=== PATIENT | female | born 1990 | race Caucasian/White ===

== ENCOUNTER 2018-12-23 18:24 | Emergency (ER) | payer OTHER ==
[2018-12-23 19:00] VITALS: RESP 18
[2018-12-23] MEDS ORDERED: ACETAMINOPHEN TAB 500 MG TAB PO STA (19:18)
--- NOTE | 2018-12-23 19:29 | ED ---
General Adult HPI - General Chief complaint: Abdominal Pain Stated complaint: rt flank pain, nausea x 1 week Time Seen by Provider: 12/23/18 19:02 Source: patient, RN notes reviewed Mode of arrival: wheelchair Limitations: no limitations - History of Present Illness Initial comments: 28-year-old female with a past medical history of depression, anxiety, section presents to the emergency department for a chief complaint of right side pain. Patient states that she has pain in the right lower abdomen side and flank for the past week. States over the past 2 days she has started to have nausea vomiting and worsening pain. States she has also had a fever for the past 2 days. States she was unsure why she had this fever. Denies any pelvic pain or vaginal discharge. Denies any dysuria. Denies any cough or congestion. Patient has no other complaints at this time including shortness of breath, chest pain, abdominal pain, nausea or vomiting, headache, or visual changes. - Related Data Previous Rx's Medication Instructions Recorded Cephalexin [Keflex] 500 mg PO Q6HR 14 Days cap 12/23/18 Ondansetron [Zofran ODT] 4 mg PO Q8HR PRN #15 tab 12/23/18 Potassium Chloride ER [K-Dur 20] 40 meq PO DAILY #1 tab 12/23/18 Allergies Allergy/AdvReac Type Severity Reaction Status Date / Time diclofenac sodium Allergy Unknown Verified 12/23/18 19:25 [From Voltaren] naproxen sodium Allergy Unknown Verified 12/23/18 19:25 [From Treximet] rizatriptan benzoate Allergy Unknown Verified 12/23/18 19:25 [From Maxalt] sumatriptan succinate Allergy Unknown Verified 12/23/18 19:25 [From Treximet] topiramate [From Topamax] Allergy Unknown Verified 12/23/18 19:25 Review of Systems ROS Statement: Those systems with pertinent positive or pertinent negative responses have been documented in the HPI. ROS Other: All systems not noted in ROS Statement are negative. Past Medical History Past Medical History: Asthma History of Any Multi-Drug Resistant Organisms: None Reported Past Surgical History: Section Additional Past Surgical History / Comment(s): Adriane Past Psychological History: Anxiety, Depression Smoking Status: Current every day smoker Past Alcohol Use History: Occasional Past Drug Use History: None Reported General Exam Limitations: no limitations General appearance: alert, in no apparent distress Head exam: Present: atraumatic, normocephalic, normal inspection Eye exam: Present: normal appearance, PERRL, EOMI. Absent: scleral icterus, conjunctival injection, periorbital swelling ENT exam: Present: normal exam, mucous membranes moist Neck exam: Present: normal inspection, full ROM. Absent: tenderness, meningismus, lymphadenopathy Respiratory exam: Present: normal lung sounds bilaterally. Absent: respiratory distress, wheezes, rales, rhonchi, stridor Cardiovascular Exam: Present: regular rate, normal rhythm, normal heart sounds. Absent: systolic murmur, diastolic murmur, rubs, gallop, clicks GI/Abdominal exam: Present: soft, tenderness (Significant Tenderness noted in the right lower quadrant. Mild tenderness noted in the right upper quadrant. Voluntary guarding present. No significant tenderness in the left upper lower quadrants.), guarding (Voluntary right lower quadrant guarding.), normal bowel sounds. Absent: distended, rebound, rigid Back exam: Present: CVA tenderness (R). Absent: CVA tenderness (L), vertebral tenderness Neurological exam: Present: alert, oriented X3 Psychiatric exam: Present: normal affect, normal mood Course Vital Signs 12/23/18 12/23/18 18:57 20:26 Temperature 103.1 F H 102.4 F H Pulse Rate 127 H 104 H Respiratory 18 18 Rate Blood Pressure 108/74 O2 Sat by Pulse 100 98 Oximetry Medical Decision Making - Medical Decision Making 28-year-old female presents to the emergency department for a chief complaint of right side pain as well as nausea and vomiting. Patient has had right-sided pain for about a week and has had nausea and vomiting for several days now. Patient has also felt febrile for a few days. Has not taken Motrin or Tylenol. Patient initially has a temperature of 103.1 with a reflexive tachycardia of 12 7. On exam she does have right CVA tenderness as well as right abdominal pain and tenderness. White count is 12.5 CMP does show mild hyponatremia of 132, patient was given normal saline. Potassium of 3.1 is also apparent, patient given oral potassium. Urine does show greater than [address] shows acute pyelonephritis of the right kidney. Patient was given 2 g of Rocephin and 2 L of fluids. She is hydrating orally as well. I did offer admission to patient however patient states she would rather go home. Therefore strict return parameters were given including but not limiting to inability to tolerate oral liquids, worsening pain, or any other concerning symptoms. Recom mended following up with primary care in 1-2 days as well. Recommended following up on culture results.. - Lab Data Result diagrams: 12/23/18 19:44 12/23/18 19:44 Lab Results 12/23/18 12/23/18 12/23/18 Range/Units 19:44 19:44 19:44 WBC 12.5 H (3.8-10.6) k/uL RBC 4.76 (3.80-5.40) m/uL Hgb 13.6 (11.4-16.0) gm/dL Hct 40.3 (34.0-46.0) % MCV 84.8 (80.0-100.0) fL MCH 28.6 (25.0-35.0) pg MCHC 33.7 (31.0-37.0) g/dL RDW 13.5 (11.5-15.5) % Plt Count 231 (150-450) k/uL Neutrophils % 80 % Lymphocytes % 8 % Monocytes % 9 % Eosinophils % 1 % Basophils % 0 % Neutrophils # 10.0 H (1.3-7.7) k/uL Lymphocytes # 1.0 (1.0-4.8) k/uL Monocytes # 1.1 H (0-1.0) k/uL Eosinophils # 0.1 (0-0.7) k/uL Basophils # 0.0 (0-0.2) k/uL Sodium 132 L (137-145) mmol/L Potassium 3.1 L (3.5-5.1) mmol/L Chloride 94 L (98-107) mmol/L Carbon Dioxide 27 (22-30) mmol/L Anion Gap 11 mmol/L BUN 11 (7-17) mg/dL Creatinine 0.78 (0.52-1.04) mg/dL Est GFR (CKD-EPI)AfAm >90 (>60 ml/min/1.73 sqM) Est GFR (CKD-EPI)NonAf >90 (>60 ml/min/1.73 sqM) Glucose 115 H (74-99) mg/dL Plasma Lactic Acid Ranjan 1.5 (0.7-2.0) mmol/L Calcium 8.8 (8.4-10.2) mg/dL Total Bilirubin 0.6 (0.2-1.3) mg/dL AST 24 (14-36) U/L ALT 19 (9-52) U/L Alkaline Phosphatase 95 (38-126) U/L Total Protein 7.0 (6.3-8.2) g/dL Albumin 3.7 (3.5-5.0) g/dL Urine Color Urine Appearance (Clear) Urine pH (5.0-8.0) Ur Specific [place] (1.001-1.035) Urine Protein (Negative) Urine Glucose (UA) (Negative) Urine Ketones (Negative) Urine Blood (Negative) Urine Nitrite (Negative) Urine Bilirubin (Negative) Urine Urobilinogen (<2.0) mg/dL Ur Leukocyte Esterase (Negative) Urine RBC (0-5) /hpf Urine WBC (0-5) /hpf Ur Squamous Epith Cells (0-4) /hpf Urine Bacteria (None) /hpf Urine Mucus (None) /hpf Urine HCG, Qual (Not Detectd) 12/23/18 12/23/18 Range/Units 19:44 19:44 WBC (3.8-10.6) k/uL RBC (3.80-5.40) m/uL Hgb (11.4-16.0) gm/dL Hct (34.0-46.0) % MCV (80.0-100.0) fL MCH (25.0-35.0) pg MCHC (31.0-37.0) g/dL RDW (11.5-15.5) % Plt Count (150-450) k/uL Neutrophils % % Lymphocytes % % Monocytes % % Eosinophils % % Basophils % % Neutrophils # (1.3-7.7) k/uL Lymphocytes # (1.0-4.8) k/uL Monocytes # (0-1.0) k/uL Eosinophils # (0-0.7) k/uL Basophils # (0-0.2) k/uL Sodium (137-145) mmol/L Potassium (3.5-5.1) mmol/L Chloride (98-107) mmol/L Carbon Dioxide (22-30) mmol/L Anion Gap mmol/L BUN (7-17) mg/dL Creatinine (0.52-1.04) mg/dL Est GFR (CKD-EPI)AfAm (>60 ml/min/1.73 sqM) Est GFR (CKD-EPI)NonAf (>60 ml/min/1.73 sqM) Glucose (74-99) mg/dL Plasma Lactic Acid Ranjan (0.7-2.0) mmol/L Calcium (8.4-10.2) mg/dL Total Bilirubin (0.2-1.3) mg/dL AST (14-36) U/L ALT (9-52) U/L Alkaline Phosphatase (38-126) U/L Total Protein (6.3-8.2) g/dL Albumin (3.5-5.0) g/dL Urine Color Dark Yellow Urine Appearance Cloudy H (Clear) Urine pH 6.0 (5.0-8.0) Ur Specific [place] 1.020 (1.001-1.035) Urine Protein 2+ H (Negative) Urine Glucose (UA) Negative (Negative) Urine Ketones Negative (Negative) Urine Blood Small H (Negative) Urine Nitrite Negative (Negative) Urine Bilirubin Negative (Negative) Urine Urobilinogen 6.0 (<2.0) mg/dL Ur Leukocyte Esterase Large H (Negative) Urine RBC 3 (0-5) /hpf Urine WBC >182 H (0-5) /hpf Ur Squamous Epith Cells 2 (0-4) /hpf Urine Bacteria Many H (None) /hpf Urine Mucus Few H (None) /hpf Urine HCG, Qual Not Detected (Not Detectd) Disposition Clinical Impression: Pyelonephritis Disposition: HOME SELF-CARE Condition: Good Instructions (If sedation given, give patient instructions): Kidney Infection (ED) Additional Instructions: Please take antibiotics as directed. Take Zofran for nausea. If you're having any worsening symptoms such as worsening fever, worsening pain, inability to to lerate oral liquids them return immediately to the emergency department. Follow-up with primary care in 1-2 days as well. Prescriptions: Cephalexin [Keflex] 500 mg PO Q6HR 14 Days cap Ondansetron [Zofran ODT] 4 mg PO Q8HR PRN #15 tab PRN Reason: Nausea Is patient prescribed a controlled substance at d/c from ED?: No Referrals: Carolee Rios MD [REFERRING] - 1-2 days Time of Disposition: 22:04
[2018-12-23] MEDS: SODIUM CHLORIDE 0.9% 500 ML 500 ML IV SCH ×2 (19:42→19:43)
[2018-12-23 20:03] LABS: Basophils % (A) 0 %; Eosinophils # (A) 0.1 k/uL (0-0.7); Eosinophils % (A) 1 %; HCT 40.3 % (34.0-46.0); HGB 13.6 gm/dL (11.4-16.0); Lymphocytes % (A) 8 %; MCH 28.6 pg (25.0-35.0); MCHC 33.7 g/dL (31.0-37.0); MCV 84.8 fL (80.0-100.0); Mean Platelet Volume 7.5; Monocytes # (A) 1.1 k/uL (0-1.0); Monocytes % (A) 9 %; Neutrophils % (A) 80 %; Platelet Count 231 k/uL (150-450); RBC 4.76 m/uL (3.80-5.40); RDW 13.5 % (11.5-15.5); WBC 12.5 k/uL (3.8-10.6)
[2018-12-23 20:22] LABS: ALT 19 U/L (9-52); AST 24 U/L (14-36); African American GFR (CKD) >90 (>60 ml/min/1.73 sqM); Albumin 3.7 g/dL (3.5-5.0); Alkaline Phosphatase 95 U/L (38-126); Anion Gap 11 mmol/L; Blood Urea Nitrogen 11 mg/dL (7-17); Calcium 8.8 mg/dL (8.4-10.2); Carbon Dioxide 27 mmol/L (22-30); Chloride 94 mmol/L (98-107); Glucose 115 mg/dL (74-99); Potassium 3.1 mmol/L (3.5-5.1); Sodium 132 mmol/L (137-145); Total Bilirubin 0.6 mg/dL (0.2-1.3)
[2018-12-23] MEDS ORDERED: MORPHINE SULFATE 4 MG/ML SYRINGE IVP STA (20:44)
[2018-12-23] MEDS ORDERED: ONDANSETRON 4 MG/2 ML VIAL IVP STA (20:45)
[2018-12-23 20:51] LABS: Appearance,Urine Cloudy (Clear); Bacteria,Urine Many /hpf; Bilirubin,Urine Negative (Negative); Blood,Urine Small (Negative); Color,Urine Dark Yellow; Glucose,Urine (UA) Negative (Negative); Ketones,Urine Negative (Negative); Leukocyte Esterase,Urine Large (Negative); Mucus,Urine Few /hpf; Nitrite,Urine Negative (Negative); Protein,Urine 2+ (Negative); RBC,Urine 3 /hpf (0-5); Squamous Epithelial Cell,Urine 2 /hpf (0-4); WBC,Urine >182 /hpf (0-5)
[2018-12-23] MEDS ORDERED: SODIUM CHLORIDE 0.9% 1,000 ML IV STA (20:53)
[2018-12-23] MEDS ORDERED: cefTRIAXone IN SWFI 1,000 MG/10 ML SYRINGE IVP STA (20:53)
--- NOTE | 2018-12-23 21:21 | CT ---
EXAMINATION TYPE: CT abdomen pelvis w con DATE OF EXAM: 12/23/2018 COMPARISON: None HISTORY: Right side abdominal pain CT DLP: 496.9 mGycm Automated exposure control for dose reduction was used. TECHNIQUE: Helical acquisition of images was performed from the lung bases through the pelvis. CONTRAST: Performed without Oral Contrast and with IV Contrast, patient injected with 100 mL of Isovu e 300. FINDINGS: LUNG BASES: No acute findings. LIVER/GB: No significant abnormality is appreciated. PANCREAS: No significant abnormality is seen. SPLEEN: No significant abnormality is seen. ADRENALS: No significant abnormality is seen. KIDNEYS: The ipsilateral right kidney is mildly enlarged and mild moderately indistinct compared with the contralateral left kidney. There are innumerable wedge-shaped hypodense perfusion defects seen a s striations, the so-called "striated nephrogram" of acute pyelonephritis. There are associated infla mmatory changes within the perirenal space. FREE AIR: No free air is visualized. RETROPERITONEAL ADENOPATHY: None visualized REPRODUCTIVE ORGANS: The uterus is retroverted. There is a small volume of cul-de-sac fluid, greater in the right, likely physiologic. URINARY BLADDER: No significant abnormality is seen. PELVIC ADENOPATHY: None visualized. OSSEOUS STRUCTURES: No significant abnormality is seen. BOWEL: No significant abnormality is seen. OTHER: No acute vascular findings. IMPRESSION: ACUTE PYELONEPHRITIS RIGHT KIDNEY.
[2018-12-23] MEDS ORDERED: POTASSIUM CHLORIDE ER 20 MEQ TAB.ER PO STA (22:01)
[2018-12-23 22:05] VITALS: TEMP 100.3
[2018-12-23] MEDS ORDERED: CEPHALEXIN 500MG STARTER PACK 4 CAP BTL PO STA (22:07)
[2018-12-23 22:13] VITALS: BP 98/65; PULSE 95
== END 2018-12-23 22:25 | disposition home or self-care (01) ==
LOC: EC 18:24
DX: N12 Tubulo-interstitial nephritis, not specified as acute or chronic (principal); E87.1 Hypo-osmolality and hyponatremia; R00.0 Tachycardia, unspecified; F17.200 Nicotine dependence, unspecified, uncomplicated; Z88.8 Allergy status to other drugs, medicaments and biological substances; Z88.6 Allergy status to analgesic agent
CPT/HCPCS: 36415; 80053; 83605; 85025; 81001; 81025; 87040; 87086; 74177; 99284; 96365; 96375 ×2; 96361; J2270; J2405; J0696; Q9967; 87077; 87186

== ENCOUNTER → 2019-12-30 | Outpatient (CLI) | payer OTHER ==
[2019-12-30 12:35] LABS: Basophils % (A) 0 %; Eosinophils # (A) 0.1 k/uL (0-0.7); Eosinophils % (A) 1 %; HCT 32.8 % (34.0-46.0); HGB 10.1 gm/dL (11.4-16.0); Hypochromasia Marked; Lymphocytes # (A) 1.8 k/uL (1.0-4.8); Lymphocytes % (A) 18 %; MCH 24.4 pg (25.0-35.0); MCHC 30.9 g/dL (31.0-37.0); MCV 78.9 fL (80.0-100.0); Mean Platelet Volume 8.8; Monocytes # (A) 0.5 k/uL (0-1.0); Monocytes % (A) 5 %; Neutrophils # (A) 7.7 k/uL (1.3-7.7); Neutrophils % (A) 75 %; Platelet Count 247 k/uL (150-450); Poikilocytosis Slight; RBC 4.16 m/uL (3.80-5.40); WBC 10.2 k/uL (3.8-10.6)
[2019-12-30 19:59] LABS: Hepatitis B Surface Antigen Non-Reactive (Non-Reactive)
[2019-12-30 21:26] LABS: HIV 2 AB Non-Reactive (Non-Reactive); HIV AB P24 Non-Reactive (Non-Reactive); HIV P24 AG Non-Reactive (Non-Reactive)
== END | disposition home or self-care (01) ==
LOC: LABWHC1 10:52
PROVIDERS: ATTEND Obstetrics & Gynecology
DX: Z34.83 Encounter for supervision of other normal pregnancy, third trimester (principal); Z3A.00 Weeks of gestation of pregnancy not specified
CPT/HCPCS: 36415; 85025; 86762; 86780; 86850; 86900; 86901; 87086; 87340; 87390

== ENCOUNTER 2020-01-01 06:16 | Inpatient (IN) | payer OTHER ==
[2019-12-31 15:22] VITALS: BMI 25.9
[2020-01-01] MEDS ORDERED: CITRIC ACID-SODIUM CITRATE 15 ML CUP PO ONE (06:32)
[2020-01-01] MEDS: LACTATED RINGERS 1,000 ML IV SCH ×5 (06:39→22:37)
[2020-01-01 06:47] LABS: Amphetamine Screen,Urine Not Detected (NotDetected); Barbiturate Screen,Urine Not Detected (NotDetected); Benzodiazepines Screen,Urine Not Detected (NotDetected); Cocaine Screen,Urine Not Detected (NotDetected); Methadone Screen, Urine Not Detected (NotDetected); Opiate Screen,Urine Not Detected (NotDetected); Oxycodone Screen, Urine Not Detected (NotDetected); Phencyclidine Screen,Urine Not Detected (NotDetected); Tricyclic Antidepressant,Urine Not Detected (NotDetected); Urn Cannabinoid Scrn Not Detected (NotDetected)
[2020-01-01 06:47] LABS: Basophils % (A) 0 %; Eosinophils # (A) 0.1 k/uL (0-0.7); Eosinophils % (A) 1 %; HCT 33.3 % (34.0-46.0); HGB 10.2 gm/dL (11.4-16.0); Hypochromasia Marked; Lymphocytes # (A) 2.1 k/uL (1.0-4.8); Lymphocytes % (A) 17 %; MCH 23.9 pg (25.0-35.0); MCHC 30.8 g/dL (31.0-37.0); MCV 77.6 fL (80.0-100.0); Mean Platelet Volume 8.6; Microcytosis Slight; Monocytes # (A) 0.7 k/uL (0-1.0); Monocytes % (A) 6 %; Neutrophils # (A) 9.2 k/uL (1.3-7.7); Neutrophils % (A) 73 %; Platelet Count 278 k/uL (150-450); Poikilocytosis Slight; RBC 4.29 m/uL (3.80-5.40); RDW 15.5 % (11.5-15.5); WBC 12.6 k/uL (3.8-10.6)
[2020-01-01] MEDS ORDERED: MORPHINE SULFATE (PF) 0.3 MG/0.3 ML SYR ONE (08:10)
[2020-01-01] MEDS ORDERED: ONDANSETRON 4 MG/2 ML VIAL ONE (08:10)
[2020-01-01] MEDS ORDERED: PHENYLEPHRINE-0.9% NACL SYG 1 MG/10 ML SYRINGE ONE (08:10)
[2020-01-01] MEDS ORDERED: OXYTOCIN 10 UNIT/ML 1 ML VIAL ONE (08:10)
[2020-01-01] MEDS ORDERED: DEXAMETHASONE SOD PHOSPHATE 10 MG/ML 1 ML VIAL ONE (08:10)
[2020-01-01] MEDS ORDERED: fentaNYL (PF) 50 MCG/ML 2 ML AMP ONE (08:10)
[2020-01-01] MEDS ORDERED: NALBUPHINE 10 MG/ML (1 ML AMP) ONE (08:10)
[2020-01-01] MEDS ORDERED: diphenhydrAMINE 50 MG/ML 1 ML VIAL ONE (08:10)
[2020-01-01] MEDS ORDERED: MIDAZOLAM 2 MG/2 ML VIAL ONE (08:10)
[2020-01-01] MEDS ORDERED: diphenhydrAMINE 50 MG CAP PO PRN (09:10)
[2020-01-01] MEDS ORDERED: LANOLIN CREAM 5 GM TUBE TOPICAL PRN (09:10)
[2020-01-01] MEDS ORDERED: ACETAMINOPHEN TAB 325 MG TAB PO PRN (09:10)
[2020-01-01] MEDS ORDERED: METOCLOPRAMIDE 5 MG/ML 2 ML VIAL IVP PRN (09:10)
[2020-01-01] MEDS ORDERED: NALOXONE 0.4 MG/ML 1 ML VIAL IV PRN (09:10)
[2020-01-01] MEDS ORDERED: HYDROcodone/APAP 5-325MG 1 EACH TAB PO PRN (09:10)
[2020-01-01] MEDS ORDERED: diphenhydrAMINE 50 MG/ML 1 ML VIAL IVP PRN ×2 (09:10)
[2020-01-01] MEDS ORDERED: ZOLPIDEM 5 MG TAB PO PRN (09:10)
[2020-01-01] MEDS ORDERED: SIMETHICONE 80 MG CHEWABLE PO PRN (09:10)
[2020-01-01] MEDS ORDERED: ONDANSETRON 4 MG/2 ML VIAL IVP PRN (09:10)
[2020-01-01] MEDS ORDERED: diphenhydrAMINE 25 MG CAP PO PRN (09:10)
[2020-01-01] MEDS ORDERED: OXYTOCIN 20 UNITS/1000 ML NS 1,000 ML IV SCH (09:15)
--- NOTE | 2020-01-01 09:20 | P.HPOB ---
History of Present Illness H&P Date: 01/01/20 Chief Complaint: 41-0/7 weeks, previous section, requesting repeat The patient is a 29-year-old 11 para 2172 admitted at 41-0/7 weeks as established reportedly by an early ultrasound done at [facility] at approximate 6-8 weeks of . Since that time, she has had no care and presented to our office for intake at 38+ weeks but then did not return for a visit until 2 days ago at 40-5/7 weeks by current dating paramet ers. She carries a history of a previous section with subsequent successful vaginal trial of labor. She denies any problems for this aside from lack of care. After long discussion of options, the patient reported that she wished to undergo tubal ligation and, as result, I opted to proceed with repeat low transverse section and intraoperative bilateral tubal occlusion with Filshie clips. Risks and complications were discussed at length. labs are not on the current record as there were drawn 2 days ago but are available in the medical record. Group B strep status was not done given late presentation. Obstetrical history: 11 para 2172 was 7 early miscarriages with D&C on occasion. She additionally had a 26 weeks demise which was delivered vaginally and did require D&C for extraction of placenta. Current statistics are listed in history of present illness. EDC of 12/25/2019 was apparently obtained with last menstrual period dating confirmed by an early ultrasound of which we do not have possession done at [facility] at approximately 6-8 weeks. Laboratory workup is available in the chart but not on the record at this time. She is Rh+ and rubella status is immune. Group B strep status was not obtained given late presentation. Gynecologic history: Historically unremarkable with no history of any infections to include STDs. Review of Systems Review of systems is confined to history of present illness. Past Medical History Past Medical History: Asthma, Blood Disorder Additional Past Medical History / Comment(s): protein C deficiency, admission last year for kidney problem-not sure what it was, no current problems, spina bifida-no mobility problems History of Any Multi-Drug Resistant Organisms: None Reported Past Surgical History: Section Additional Past Surgical History / Comment(s): Adriane Past Anesthesia/Blood Transfusion Reactions: Previous Problems w/ Anesthesia Additional Past Anesthesia/Blood Transfusion Reaction / Comment(s): had some tongue swelling after teeth were pulled-not sure what happened, no rxn with her c/s Past Psychological History: Anxiety, Depression Additional Psychological History / Comment(s): not currently medicated Smoking Status: Current every day smoker Past Alcohol Use History: None Reported Additional Past Alcohol Use History / Comment(s): 1/2ppd for 12 years Past Drug Use History: None Reported - Past Family History Mother Family Medical History: Cancer, Diabetes Mellitus Medications and Allergies Home Medications Medication Instructions Recorded Confirmed Type Albuterol Inhaler [Ventolin Hfa 2 puff INHALATION RT-QID PRN 12/31/19 01/01/20 History Inhaler] Allergies Allergy/AdvReac Type Severity Reaction Status Date / Time diclofenac sodium Allergy Unknown Verified 01/01/20 06:32 [From Voltaren] naproxen sodium Allergy Unknown Verified 01/01/20 06:32 [From Treximet] rizatriptan benzoate Allergy Unknown Verified 01/01/20 06:32 [From Maxalt] sumatriptan succinate Allergy Unknown Verified 01/01/20 06:32 [From Treximet] topiramate [From Topamax] Allergy Unknown Verified 01/01/20 06:32 Exam Vital Signs Temp Pulse Resp BP 01/01/20 06:49 96.7 F L 93 18 139/91 Intake and Output 12/31/19 01/01/20 01/01/20 22:59 06:59 14:59 Other: Weight 70.76 kg 70.76 kg In general, this is a well-developed, well-nourished white female in a little bit of discomfort as she is ryan. Her heart has a regular rhythm and rate without murmur. Her lungs are clear to auscultation bilaterally in all paredes. Her abdomen is gravid, nondistended, has normal active bowel sounds, soft, nontender, without any palpable masses aside from uterine fundus. Her extremities are without any cyanosis, clubbing, or edema and are nontender to palpation bilaterally. Digital cervical examination is deferred. Results Result Diagrams: 01/01/20 06:38 Abnormal Lab Results - Last 24 Hours (Table) 01/01/20 Range/Units 06:38 WBC 12.6 H (3.8-10.6) k/uL Hgb 10.2 L (11.4-16.0) gm/dL Hct 33.3 L (34.0-46.0) % MCV 77.6 L (80.0-100.0) fL MCH 23.9 L (25.0-35.0) pg MCHC 30.8 L (31.0-37.0) g/dL Neutrophils # 9.2 H (1.3-7.7) k/uL Assessment and Plan (1) Family planning Current Visit: No Status: Acute Code(s): Z30.09 - ENCOUNTER FOR OT GENERAL CNSL AND ADVICE ON CONTRACEPTION SNOMED Code(s): 905400157 (2) Previous section Current Visit: No Status: Acute Code(s): Z98.891 - HISTORY OF UTERINE SCAR FROM PREVIOUS SURGERY SNOMED Code(s): 934375705 (3) Post-dates Current Visit: No Status: Acute Code(s): O48.0 - POST-TERM SNOMED Code(s): 77434256 Plan: The patient is admitted for repeat low transverse section with i ntraoperative bilateral tubal occlusion using Filshie clips. The risks and complications of all the procedures of been thoroughly discussed and the patient has understood and agreed to proceed.
--- NOTE | 2020-01-01 09:26 | P.OP ---
Date of Procedure: 01/01/20 Preoperative Diagnosis: #1. 41-0/7 weeks intrauterine #2. No care #3. Previous section, declining trial of labor #4. Undesired fertility Postoperative Diagnosis: Same plus #5. Apparent oligohydramnios versus spontaneous rupture of membranes Procedure(s) Performed: #1. Repeat low transverse section #2. Intraoperative bilateral tubal occlusion with Filshie clips Anesthesia: spinal Surgeon: Mynor Angulo Biomedical Analytical Scientist #1: Veronica Bullock Estimated Blood Loss (ml): 500 IV fluids (ml): 1,000 Urine output (ml): 250 Pathology: other (Placenta) Condition: stable Disposition: floor Operative Findings: The patient was taken to the operating room where she was delivered of a viable 6 lbs. 8 oz. baby boy with Apgars of 9 at 1 minute and 9 at 5 minutes. The placenta was delivered manually, intact, and grossly normal with a grossly normal three-vessel cord. The uterus, tubes, and ovaries were entirely normal to inspection. There was a moderate amount of scarring at the level of the fascia and rectus muscles. Description of Procedure: The patient was prepped and draped in usual fashion after spinal anesthesia was administered by the anesthesiologist. A Pfannenstiel incision was made through pre-existing scar and extended into the abdominal cavity with minimal difficulty though there was some moderate scarring at the level of the fascia and rectus muscles. The bladder peritoneum was noted to be significantly distal to the intended site of incision was left intact. A 2 cm incision was made in the transverse plane of the lower uterine segment to enter the uterus at which time minimal clear fluid was noted. The incision was expanded in both directions using the bandage scissors. The head was delivered up and through the incision where the nose and mouth were thoroughly suctioned. Remainder of the infant was delivered onto the field where the cord was doubly clamped, cut, and the infant passed resuscitative measures with weight and Apgars as noted above. A segment of cord was doubly clamped, cut, and set aside should cord gases become necessary. The placenta was delivered manually and intact as noted above. The uterus was exteriorized and the interior cavity swept of any remaining placental or membranous fragments. The margins of the incision were grasped with Adams clamps and the incision closed in 2 layers. The first layer was a running locking stitch of 0 chromic catgut followed by a running imbricating stitch of 0 chromic catgut. Small point of bleeding in the central left portion of the incision was made hemostatic with 2 [id number] stitches of 0 chromic catgut. The posterior cul-de-sac was suctioned with a guard and the uterine and ovarian findings were normal as noted above. The uterus was replaced within the abdominal cavity and the gutters swept of any remaining blood, fluid, or clot. The incision was reexamined and found to be hemostatic. The parietal peritoneum was loosely reapproximated and layer of muscles examined and made hemostatic with the Bovie. The fascia was closed with 2 running stitches of 0 Vicryl proceeding from the lateral margins to the midpoint. Subcutaneous tissues were irrigated, made hemostatic with the Bovie, and reapproximated with a running stitch of 3-0 chromic catgut. The skin was reapproximated with a running subcuticular stitch of 4-0 Vicryl followed by half-inch Steri-Strips placed with Mastisol. Estimated blood loss for the entire case was approximate 500 mL. There are no complications. All sponge, instrument, and needle counts were correct. Both mother and are resting comfortably in recovery of the infant did proceed to the special care nursery for short-term observation secondary to tachypnea.
[2020-01-01] MEDS: KETOROLAC 15 MG/ML 1 ML VIAL IVP PRN ×2 (10:20→18:39)
[2020-01-01] MEDS: SENNOSIDES-DOCUSATE SODIUM 1 EACH TAB PO SCH (22:01)
[2020-01-02] MEDS: KETOROLAC 15 MG/ML 1 ML VIAL IVP PRN ×2 (00:24→05:59)
[2020-01-02] MEDS: HYDROcodone/APAP 7.5-325MG 1 EACH TAB PO PRN ×4 (03:27→21:20)
[2020-01-02 06:42] LABS: Basophils % (A) 0 %; Eosinophils # (A) 0.1 k/uL (0-0.7); Eosinophils % (A) 0 %; HCT 27.6 % (34.0-46.0); Hypochromasia Marked; Lymphocytes # (A) 2.4 k/uL (1.0-4.8); Lymphocytes % (A) 18 %; MCH 24.1 pg (25.0-35.0); MCHC 30.3 g/dL (31.0-37.0); MCV 79.7 fL (80.0-100.0); Mean Platelet Volume 8.6; Monocytes # (A) 0.8 k/uL (0-1.0); Monocytes % (A) 6 %; Neutrophils # (A) 9.9 k/uL (1.3-7.7); Neutrophils % (A) 75 %; Platelet Count 237 k/uL (150-450); Poikilocytosis Slight; RBC 3.47 m/uL (3.80-5.40); RDW 15.8 % (11.5-15.5); WBC 13.3 k/uL (3.8-10.6)
[2020-01-02 06:46] LABS: HGB 8.4 gm/dL (11.4-16.0)
--- NOTE | 2020-01-02 09:47 | P.PNOBGPC ---
Subjective - Subjective Principal diagnosis: Postop day 1, repeat section with tubal ligation Interval history: Patient is doing well postoperatively. She is ambulatory and voiding without difficulty. She states her pain is moderately controlled with oral [place]. She is tolerating a regular diet without nausea or vomiting. Patient reports: Reports appetite normal, Reports voiding normally, Reports pain well controlled, Reports ambulating normally [place]: doing well, nursing well Objective - Vital Signs Latest vital signs: Vital Signs Temp Pulse Resp BP Pulse Ox 01/02/20 08:00 98.1 F 68 16 95/56 98 01/02/20 00:00 98.7 F 86 16 117/79 97 01/01/20 20:00 98.1 F 86 16 123/34 99 01/01/20 16:00 98.3 F 84 16 136/85 98 01/01/20 12:00 97.1 F L 78 16 137/77 97 01/01/20 11:06 75 16 119/60 97 01/01/20 10:36 72 16 145/81 97 01/01/20 10:06 69 16 116/72 98 01/01/20 09:51 60 16 118/71 100 Intake and Output 01/01/20 01/02/20 01/02/20 22:59 06:59 14:59 Intake Total 200 Output Total 1100 900 Balance -900 -900 Intake: Oral 200 Output: Urine 1100 900 Uretheral (Dinero) 900 Other: Voiding Method Indwelling Catheter - Exam Extremities: Present: normal Abdomen: Present: normal appearance, aortic enlargement Incision: Present: normal, dry, intact Uterus: Present: normal, firm - Labs Labs: Abnormal Lab Results - Last 24 Hours (Table) 01/02/20 Range/Units 05:21 WBC 13.3 H (3.8-10.6) k/uL RBC 3.47 L (3.80-5.40) m/uL Hgb 8.4 L D (11.4-16.0) gm/dL Hct 27.6 L (34.0-46.0) % MCV 79.7 L (80.0-100.0) fL MCH 24.1 L (25.0-35.0) pg MCHC 30.3 L (31.0-37.0) g/dL RDW 15.8 H (11.5-15.5) % Neutrophils # 9.9 H (1.3-7.7) k/uL Assessment and Plan (1) No care in current Current Visit: No Status: Acute Code(s): O09.30 - SUPRVSN OF PREG W INSUFFICIENT ANTENAT CARE, UNSP TRIMESTER SNOMED Code(s): 978977105 (2) Post-dates Current Visit: No Status: Acute Code(s): O48.0 - POST-TERM SNOMED Code(s): 38424871 (3) Previous section Current Visit: No Status: Acute Code(s): Z98.891 - HISTORY OF UTERINE SCAR FROM PREVIOUS SURGERY SNOMED Code(s): 646615313 (4) S/P section Current Visit: No Status: Acute Code(s): Z98.891 - HISTORY OF UTERINE SCAR FROM PREVIOUS SURGERY SNOMED Code(s): 777907305 Plan: We'll continue routine postoperative care, increase ambulation. Patient is doing well overall and I anticipate discharge home tomorrow.
[2020-01-02] MEDS: IBUPROFEN 600 MG TAB PO PRN ×2 (13:18→18:22)
[2020-01-02] MEDS: LACTATED RINGERS 1,000 ML IV SCH (13:36)
[2020-01-02] MEDS: SENNOSIDES-DOCUSATE SODIUM 1 EACH TAB PO SCH ×2 (20:23→20:47)
[2020-01-03] MEDS: IBUPROFEN 600 MG TAB PO PRN ×2 (00:03→06:19)
[2020-01-03] MEDS: HYDROcodone/APAP 7.5-325MG 1 EACH TAB PO PRN ×2 (04:03→10:07)
[2020-01-03] MEDS: SENNOSIDES-DOCUSATE SODIUM 1 EACH TAB PO SCH (07:45)
[2020-01-03 08:41] VITALS: BP 118/76; PULSE 81; RESP 18; TEMP 98.6
--- NOTE | 2020-01-03 10:10 | P.DS ---
Providers Date of admission: 01/01/20 06:16 Expected date of discharge: 01/03/20 Attending physician: Mynor Angulo Primary care physician: Stated None - Discharge Diagnosis(es) (1) No care in current Current Visit: No Status: Acute (2) Post-dates Current Visit: No Status: Acute (3) Previous section Current Visit: No Status: Acute (4) S/P section Current Visit: No Status: Acute Hospital Course: This is a 29-year-old 11 para 2172 that presented to labor and delivery at 41-0/7 weeks for scheduled repeat section with tubal ligation. Patient presented to [facility] for OB intake at approximately 38 weeks of subsequently not returning until she was 40-5/7 to discuss delivery options. Patient had an early ultrasound [facility] dating the with current estimated date of confinement of 12/24. Upon admission patient noted good movement and denied contractions. Patient was subsequently taken to the operating suite for scheduled repeat section and tubal ligation. For further details on the please see the operative report. Patient's postoperative course has been uneventful. On this postoperative day #2 she is ambulating and voiding without difficulty. She is tolerating a regular diet without nausea or vomiting. She states her lochia is minimal. She is breast-feeding without difficulty. Her pain is well-controlled with oral [place] and oral Motrin. Patient Condition at Discharge: Good Plan - Discharge Summary Discharge Rx Participant: No New Discharge Prescriptions: No Action Albuterol Inhaler [Ventolin Hfa Inhaler] 2 puff INHALATION RT-QID PRN PRN Reason: Dyspnea Discharge Medication List Albuterol Inhaler [Ventolin Hfa Inhaler] 2 puff INHALATION RT-QID PRN 12/31/19 [History] Patient Instructions/Handouts: (DC), (GEN) Discharge Disposition: HOME SELF-CARE
--- NOTE | 2020-01-03 14:56 | P.PN ---
Progress Note - Text 01/02/20 [id number] 49-year-old female status post with spinal Duramorph. Patient seen and evaluated for postop pain control with a VAS of 2 no complains of nausea vomiting doing well
== END 2020-01-03 10:45 | disposition home or self-care (01) | DRG 784 ==
LOC: 4FBP 06:16
PROVIDERS: ADMIT Obstetrics & Gynecology; ATTEND Obstetrics & Gynecology
PROC: 0UL70CZ Occlusion of Bilateral Fallopian Tubes with Extraluminal Device, Open Approach (ICD-10-PCS; 2020-01-01)
PROC: 10D00Z1 Extraction of Products of Conception, Low, Open Approach (ICD-10-PCS; principal; 2020-01-01 08:00)
DX: O34.211 Maternal care for low transverse scar from previous cesarean delivery (principal); O99.354 Diseases of the nervous system complicating childbirth; D68.59 Other primary thrombophilia; O99.12 Other diseases of the blood and blood-forming organs and certain disorders involving the immune mechanism complicating childbirth; Q05.9 Spina bifida, unspecified; O48.0 Post-term pregnancy; J45.909 Unspecified asthma, uncomplicated; O99.52 Diseases of the respiratory system complicating childbirth; O99.344 Other mental disorders complicating childbirth; F32.9 Major depressive disorder, single episode, unspecified; O99.334 Smoking (tobacco) complicating childbirth; F17.210 Nicotine dependence, cigarettes, uncomplicated; O99.62 Diseases of the digestive system complicating childbirth; K21.9 Gastro-esophageal reflux disease without esophagitis; F41.9 Anxiety disorder, unspecified; Z30.2 Encounter for sterilization; Z37.0 Single live birth; Z3A.41 41 weeks gestation of pregnancy; Z87.59 Personal history of other complications of pregnancy, childbirth and the puerperium; Z87.448 Personal history of other diseases of urinary system; Z88.6 Allergy status to analgesic agent; Z88.8 Allergy status to other drugs, medicaments and biological substances; Z83.3 Family history of diabetes mellitus; Z80.9 Family history of malignant neoplasm, unspecified
CPT/HCPCS: 80306; 85025; 88307

== ENCOUNTER 2024-09-02 16:17 | Emergency (ER) | payer OTHER ==
--- NOTE | 2024-09-02 22:39 | ED ---
General Adult HPI - General Chief complaint: Psychiatric Symptoms Stated complaint: petition Time Seen by Provider: 09/02/24 16:46 Source: patient, police Mode of arrival: ambulatory Limitations: no limitations - History of Present Illness Initial comments: Patient is a 34-year-old female presenting today for suicidal ideation. History is limited as patient is intoxicated and evasive with answering questions. She was reportedly at the [place] bridge attempting to jump off and was visibly intoxicated. She was able to be stopped by bystanders and police. She was petition by police for suicidal ideation. When asked the patient is suicidal she states "I do not remember". She states to me that she has had 2 prior suicide attempts but does not specify when these were. She states when asked if she consumed alcohol today she states "I must have". She denies illicit drug use. She denies auditory or this hallucinations. Denies access to weapons at home. Denies additional medical problems or complaints. She denies ingesting any extra medications today. - Related Data Home Medications Medication Instructions Recorded Confirmed No Known Home Medications 09/02/24 09/02/24 Allergies Allergy/AdvReac Type Severity Reaction Status Date / Time diclofenac sodium Allergy Unknown Verified 09/02/24 18:54 [From Voltaren] naproxen sodium Allergy Unknown Verified 09/02/24 18:54 [From Treximet] rizatriptan benzoate Allergy Unknown Verified 09/02/24 18:54 [From Maxalt] sumatriptan succinate Allergy Unknown Verified 09/02/24 18:54 [From Treximet] topiramate [From Topamax] Allergy Unknown Verified 09/02/24 18:54 Review of Systems ROS Statement: Those systems with pertinent positive or pertinent negative responses have been documented in the HPI. ROS Other: All systems not noted in ROS Statement are negative. Past Medical History Past Medical History: Asthma, Blood Disorder Additional Past Medical History / Comment(s): protein C deficiency, admission last year for kidney problem-not sure what it was, no current problems, spina bifida-no mobility problems History of Any Multi-Drug Resistant Organisms: None Reported Past Surgical History: Section Additional Past Surgical History / Comment(s): DandC Past Anesthesia/Blood Transfusion Reactions: Previous Problems w/ Anesthesia Additional Past Anesthesia/Blood Transfusion Reaction / Comment(s): had some to ngue swelling after teeth were pulled-not sure what happened, no rxn with her c/s Past Psychological History: Anxiety, Depression Smoking Status: Current every day smoker Past Alcohol Use History: Daily, Heavy Past Drug Use History: None Reported - Past Family History Mother Family Medical History: Cancer, Diabetes Mellitus General Exam - General Exam Comments Initial Comments: Vital signs reviewed General: Well-appearing, nontoxic, no acute distress, disheveled, appears intoxicated Head: Normocephalic, atraumatic Eyes: PERRLA, EOMI ENT: Airway patent Chest: Nonlabored breathing Skin: No visual rash, normal skin tone Neuro: Alert and oriented 3, no focal neurologic deficits Psychiatric: Makes poor eye contact, evasive when answering questions, does not answer directly whether or not she is or was suicidal, denies homicidal thoughts or ideas, denies auditory or visual hallucinations, is calm and cooperative, does not appear to be responding to internal stimuli Musculoskeletal: No gross abnormalities Limitations: no limitations Course Vital Signs 09/02/24 09/02/24 16:39 22:50 Temperature 98.2 F 97.6 F Pulse Rate 117 H 110 H Respiratory 18 20 Rate Blood Pressure 123/89 130/85 O2 Sat by Pulse 99 100 Oximetry Medical Decision Making - Medical Decision Making Was pt. sent in by a medical professional or institution (, PA, FOOD ORDER DELIVERY RUNNER, urgent care, hospital, or long term...) When possible be specific @ -No Did you speak to anyone other than the patient for history (EMS, parent, family, police, friend...)? What history was obtained from this source @ -No Did you review nursing and triage notes (agree or disagree)? Why? @ -I reviewed and agree with nursing and triage notes Were old charts reviewed (outside hosp., previous admission, EMS record, old EKG, old radiological studies, urgent care reports/EKG's, long term records)? Report findings @ -Medical records reviewed-no prior visits or ER for psychiatric complaints, reviewed petition stating that patient was on a bridge attempting to commit [place]. intoxicated, 2 people and PD were able to bring her away from bridge Differential Diagnosis (chest pain, altered mental status, abdominal pain women, abdominal pain men, vaginal bleeding, weakness, fever, dyspnea, syncope, headache, dizziness, GI bleed, back pain, seizure, CVA, palpatations, mental health, musculoskeletal)? @Differential Mental Health Depression, anxiety, bipolar, psychosis, schizophrenia, borderline personality, situational depression, adjustment disorder, behavioral disorder, brain tumor, malingering, substance abuse, encephalopathy, medication reaction, dementia, hypothyroidism, degenerative neurologic disorder, lupus.... This is not meant to be all-inclusive list EKG interpreted by me (3pts min.). @ -As above X-rays interpreted by me (1pt min.). @ -None done CT interpreted by me (1pt min.). @ -None done U/S interpreted by me (1pt. min.). @ -None done What testing was considered but not performed or refused? (CT, X-rays, U/S, labs)? Why? @ -None What meds were considered but not given or refused? Why? @ -None Did you discuss the management of the patient with other professionals (professionals i.e. DrEnrique, PA, FOOD ORDER DELIVERY RUNNER, lab, RT, psych nurse, mental health social worker, carriage rider, teacher, first officer, employment evaluator/case manager)? Give summary @Case was discussed with Dr. Goode, psychiatry, and Nila EPS RN. On EPS RN evaluation, pt was now sober, and denied SI or prior suicide attempts. Based on her assessment, Dr. Goode recommended discharge with safety planning. I did discuss with Dr. Goode that patient had endorsed to me two prior suicide attempts but did not state further details, this was when she was intoxicated. Was smoking cessation discussed for >3mins.? @ -No Was critical care preformed (if so, how long)? @ -No Were there social determinants of health that impacted care today? How? (Homelessness, low income, unemployed, alcoholism, drug addiction, transportation, low edu. Level, literacy, decrease access to med. care, [place] [facility], rehab)? @ -No Was there de-escalation of care discussed even if they declined (Discuss DNR or withdrawal of care, Hospice)? @ -No What co-morbidities impacted this encounter? (DM, HTN, Smoking, COPD, CAD, Cancer, CVA, ARF, Chemo, Hep., AIDS, mental health diagnosis, sleep apnea, morbid obesity)? @ -None Was patient admitted / discharged? Hospital course, mention meds given and route, prescriptions, significant lab abnormalities, going to OR and other pertinent info. Discharged- Patient is a 34 y/o female presenting today for alcohol intoxication and SI. Presents with petition. PBT showed alcohol 0.148. Patient did not directly answer me when asked about SI. She was agreeable with remaining until clinically sober and can be evaluated by EPS RN. Pt medically cleared and seen by EPS when sober after 9 PM. Based on EPS RN's assesssment and discussion with psychiatrist, Dr. Goode, pt is okay for discharge home into her boyfriend's care with a safety plan. 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 Additionally, we were not able to get in touch with any family or friends to confirm patient would have a safe place to be discharged to. I discussed with the patient my concern regarding her attempt and that I would like her to remain overnight for inpatient psychiatric evaluation. Patient states she cannot stay her overnight as she needs to get home to her kids and has to meet with her first officer in the morning. She now denies any prior suicide attempts, stating she does not remember telling me that earlier nor does she remember talking to me earlier. She is becoming visibly upset at the prospect of having to be admitted to inpatient psych and states she will not stay. I discussed with the patient that if she were to be discharged, I would want to make sure she has someone safe to corroborate her history and check on her. Ultimately, we were able to talk with patient's long time friend, Juvenal, who states he has known the patient for years and has never known her to be suicidal before. He sees her 3-4 times a week and does not know her to own any weapons. Additionally, if needed, he would be willing to have the patient stay with him tonight if needed and he does not have weapons in his home. I discussed this with the patient and she was agreeable with staying with Juvenal, additionally, is following up with [facility] in the morning and has an appointment with her psyc hiatrist on September 07. At this point, I feel this risk of restraining the patient and hospitalizing her against her will outweighs potential benefit and she has a safety plan in place for discharge. Patient discharge in stable condition. Undiagnosed new problem with uncertain prognosis? @ -No Drug Therapy requiring intensive monitoring for toxicity (Heparin, Nitro, Insulin, Cardizem)? @ -No Were any procedures done? @ -No Diagnosis/symptom? @Alcohol intoxication Acute, or Chronic, or Acute on Chronic? @ acute Uncomplicated (without systemic symptoms) or Complicated (systemic symptoms)? @complicated Side effects of treatment? @ -No Exacerbation, Progression, or Severe Exacerbation? @ -No Poses a threat to life or bodily function? How? (Chest pain, [place], PA, pneumonia, PE, COPD, DKA, ARF, appy, cholecystitis, CVA, Diverticulitis, Homicidal, Suicidal, threat to staff... and all critical care pts) @ No, not at the time of discharge Disposition Clinical Impression: Alcoholic intoxication with complication Disposition: HOME SELF-CARE Condition: Stable Instructions (If sedation given, give patient instructions): Suicide Prevention (ED) Additional Instructions: Every disease is a spectrum and a small chance still exists that a serious c ondition could develop, for this reason, please monitor yourself closely for new, changing or worsening symptoms, thoughts of wanting to kill or harm yourself or kill or harm others, seeing or hearing things that are not there [fever], inability to tolerate/keep down fluids or your medications, inability to follow up with outpatient providers as instructed and should you experience these symptoms or should you have any further concerns for your wellbeing please return to the ED or call 911 immediately. Please follow-up with your psychiatrist and [facility] counselor as scheduled PLEASE call your primary care physician as soon as possible to arrange / discuss plan for followup appointment. Appointment in the next 1-3 days is strongly encouraged if possible. PLEASE let us know here before you leave if there is anything further we can do to be of any assistance. Take care and feel Better! Is patient prescribed a controlled substance at d/c from ED?: No Referrals: None,Stated [Primary Care Provider] - 1-2 days
[2024-09-02 22:53] VITALS: BP 130/85; PULSE 110; RESP 20; TEMP 97.6
== END 2024-09-02 22:56 | disposition home or self-care (01) ==
LOC: EC 16:17
DX: F10.129 Alcohol abuse with intoxication, unspecified (principal); F17.200 Nicotine dependence, unspecified, uncomplicated; Z88.6 Allergy status to analgesic agent; Z88.8 Allergy status to other drugs, medicaments and biological substances; Y90.9 Presence of alcohol in blood, level not specified
CPT/HCPCS: 82075; 99285